=== PATIENT | male | born 1980 | race Caucasian/White ===

== ENCOUNTER 2016-10-25 22:27 | Emergency (ER) | payer OTHER ==
[~2016-10-25] VITALS: Ht 165.1 cm; Wt 81.6 kg
--- NOTE | ~2016-10-25 | CT4 ---
[facility] A Service of [facility] & [facility] RADIOLOGY TEXT RESULTS PATIENT: ALFONSO SEVILLA LOCATION: SED : 84 UNIT #: [id number] AGE: [address]: Tammi Purdy SEX: M ORDER DR: [id number] [place] [id number] E MR#: [id number] Acc #: [id number] NAME: ALFONSO SEVILLA : 1980 SEX: M STUDY DATE/TIME: 10/25/2016 23:31 UNIT: SED ROOM: STUDY DESCRIPTION: CT Abd and Pelv Wo Cont Attending Physician: Tammi Purdy Pa-C Ordering Physician: Tammi Purdy Pa-C Primary Care Physician: Primary Care Physician No MEDICAL IMAGING REPORT This report is preliminary unless electronic signature is present. EXAM CT abdomen and pelvis, noncontrast, kidney stone protocol, 10/25/2016 HISTORY 36-year-old male in the ED complaining of right side/flank pain for the last 4 days. History of kidney stones. TECHNIQUE CT examination of the abdomen and pelvis without oral or IV contrast using kidney stone protocol. This CT exam was performed with one or more of the following radiation dose reduction techniques: automatic exposure control, adjustment of mA and/or kV according to patient size, and iterative reconstruction. FINDINGS ABDOMEN FINDINGS: There is an obstructing 7.0 mm calculus in the right distal ureter at the UVJ, partially protruding into the urinary bladder. This causes only mild right hydronephrosis. Tiny nonobstructing calculus in the upper pole left kidney measuring 3.0 mm. Kidneys, ureters and bladder otherwise negative. Liver, pancreas and spleen are normal in size and appearance. No gallbladder distension or bile duct dilatation. Small bowel and colon are normal in caliber and appearance, as imaged. Normal appendix. PELVIS FINDINGS: Nondistended bladder. Prostate and rectum are negative. No significant inguinal hernia. Limited lung base images show no active disease. IMPRESSION 1. Obstructing 7.0 mm calculus in the right distal ureter at the UVJ causing minimal to mild right hydronephrosis. STS. [facility] A Service of [facility] & [facility] RADIOLOGY TEXT RESULTS PATIENT: ALFONSO SEVILLA LOCATION: [facility] [place] : [birth year] UNIT #: [id number] AGE: [address]: Tammi Purdy SEX: M ORDER DR: 2. 3.0 mm nonobstructing calculus in the upper pole left kidney. 3. Remainder of the exam is negative. Normal appendix. Dictated by... Saleem Jones M.D. THIS IS AN ELECTRONICALLY VERIFIED REPORT Saleem Jones M.D. at 10/26/2016 10:02 PM LEONID/kasandra TD: 10/26/2016 10:21 JOB #: [id number] MEDICAL IMAGING REPORT Page 1 of 1
[~2016-10-25 22:27] MED LIST: AMOXICILLIN500 M1 PO; BACTRIM DS TABL1 TA1 PO; CIPRO PO; FLOMAX0.4 M1 PO; FLOMAX0.4 MG PO; IBUPROFEN800 MG PO; KEFLEX500 M1 PO; LORTAB 5-325 M1 EACH PO; MOTRIN600 M1 PO; NO MEDICATIONS; PENICILLIN V P500 MG PO; PERCOCET5/325 PO; PHENERGAN VC W120 M1 PO; PHENERGAN25 MG PO; SILVADENE TOP; TYLOX 5/500 CAP1 CAP PO; VICODIN 5/1 TAB 5/50 PO; VICODIN PO
[2016-10-25 22:46] LABS: URINE SOURCE CLEAN CATCH
[2016-10-25 22:48] LABS: URINE APPEARANCE CLEAR; URINE BLOOD 2+ (NEG); URINE COLOR YELLOW; URINE GLUCOSE NEG (NORM); URINE KETONE NEG (NEG); URINE LEUKOCYTE ESTERASE NEG (NEG); URINE NITRATE NEG (NEG); URINE PROTEIN TRACE (NEG); URINE SPECIFIC GRAVITY >=1.030 (1.003-1.035)
[2016-10-25 22:50] LABS: MICRO INDICATED? YES; URINE BILIRUBIN NEG (NEG)
[2016-10-25 22:51] LABS: CULTURE INDICATED? NO; URINE BACTERIA NEG (NEG); URINE MUCUS PRESENT; URINE SQUAMOUS EPITHELIAL CELL FEW /[HPF]; URINE WBC 0-2 /[HPF] (0-5)
[2016-10-25 23:28] LABS: BASOPHIL% 0.5 % (0-2.5); EOSINOPHIL# 0.1 X10e3 (0-0.7); EOSINOPHIL% 1.5 % (0.0-7.0); HEMOGLOBIN 13.5 gm/dL (13.0-16.0); LYMPHOCYTE# 1.8 X10e3 (1.0-3.5); LYMPHOCYTE% 21.5 % (17.0-45.0); MEAN CELL VOLUME 86.1 FL (83-96); MEAN CORPUSCULAR HEMOGLOBIN 29.7 PG (28-34); MEAN CORPUSCULAR HGB CONC 34.5 g/dL (30-36); MEAN PLATELET VOLUME 8.3 FL (6.5-11.5); MONOCYTE# 0.7 X10e3 (0-1.0); MONOCYTE% 8.9 % (3.0-12.0); NEUTROPHIL# 5.5 X10e3 (1.5-7.1); NEUTROPHIL% 67.6 % (40-75); PLATELET COUNT 197 X10e3 (140-420); RED BLOOD COUNT 4.53 X10e (3.90-5.60); RED CELL DISTRIBUTION WIDTH 13.2 % (11.0-15.5); WHITE BLOOD COUNT 8.2 X10e3 (4.0-10.5)
[2016-10-25 23:29] LABS: DIFF IND NO
[2016-10-25 23:45] LABS: ALBUMIN SERUM 4.2 g/dL (3.5-5.0); BILIRUBIN,TOTAL 0.5 mg/dL (0.2-2.0); BUN/CREATININE RATIO 11.11; CALCIUM SERUM 8.8 mg/dL (8.4-10.2); CREATININE SERUM 0.9 mg/dL (0.6-1.4); POTASSIUM 3.6 mmol/L (3.5-5.1); PROTEIN TOTAL SERUM 7.1 g/dL (6.0-8.3)
== END 2016-10-26 01:01 | disposition home or self-care (01) ==
LOC: SED 22:27
PROVIDERS: Emergency Medicine; Physician Assistant
DX: N13.2 Hydronephrosis with renal and ureteral calculous obstruction (principal); Z87.442 Personal history of urinary calculi; Z98.890 Other specified postprocedural states
CPT/HCPCS: 36415; 74176; 80053; 81003; 85025; 96372; 99284; J1885

== ENCOUNTER 2016-11-05 23:56 | Emergency (ER) | payer OTHER ==
[~2016-11-05] VITALS: Ht 165.1 cm; Wt 81.6 kg
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
== END 2016-11-06 01:55 | disposition home or self-care (01) ==
LOC: SED 23:56
DX: S13.4XXA Sprain of ligaments of cervical spine, initial encounter (principal); S16.1XXA Strain of muscle, fascia and tendon at neck level, initial encounter; S39.012A Strain of muscle, fascia and tendon of lower back, initial encounter; V49.50XA Passenger injured in collision with unspecified motor vehicles in traffic accident, initial encounter
CPT/HCPCS: 72040; 72072; 99283